=== PATIENT | female | born 1970 | race Caucasian/White ===

== ENCOUNTER 2017-03-11 14:55 | Emergency (ER) | payer OTHER ==
[~2017-03-11] VITALS: Ht 170.2 cm; Wt 79.0 kg
[~2017-03-11 14:55] MED LIST: ALLEGRA-D 241 TABLET PO; ATENOLOL25 M1 PO; ATENOLOL50 MG PO; CIMZIA400 MG/2 M PO; DEXILANT60 MG PO; ENDOCET 5-3251 EACH PO; FOLIC ACID1 MG PO; GABAPENTIN400 MG PO; LEFLUNOMIDE10 MG PO; MOTRIN800 MG PO; NAPROSYN500 MG PO; Naprosyn PO; OMEPRAZOLE20 M2 PO; ORENCIA250 MG/10 IV; OXYCODONE5 MG PO; PROTONIX40 MG PO; ZANTAC150 MG PO; ZYRTEC10 M2 PO
[2017-03-11] MEDS ORDERED: TRAMADOL HCL50 MG PO (15:15)
[2017-03-11] MEDS ORDERED: HUMIRA10 MG/0.2 SC (15:16)
[2017-03-11 15:46] LABS: HEMATOCRIT 35.4 % (36.0-46.0); MCH 28.7 PG (29.0-34.0); MCHC 33.1 G/DL (30.0-36.0); MEAN PLAT.VOLUME 9.4 uM^3 (9.5-12.4); PLATELET COUNT 281 K/uL (156-360); RBC DIS.WIDTH-CV 12.1 % (11.8-14.6); RBC DIS.WIDTH-SD 38.7 % (39-53); RED BLOOD COUNT 4.07 M/uL (3.80-5.20)
[2017-03-11 15:56] LABS: CHLORIDE 104 mEq/L (99-109); POTASSIUM 3.7 mEq/L (3.7-5.4); SODIUM 138 mEq/L (136-147)
[2017-03-11 15:58] LABS: ERTH.SED.RATE 74 MM/HR (0-20); GLUCOSE 87 mg/dL (70-99)
[2017-03-11 15:59] LABS: ANION GAP 11 MEQ/L (2-14)
[2017-03-11 16:02] LABS: GFR ESTIMATE (CALCULATED) > 59 mL/min/; UREA NITROGEN (BUN) 11 mg/dL (9-23)
[2017-03-11 20:06] VITALS: BP 151/94
== END 2017-03-11 20:07 | disposition home or self-care (01) ==
LOC: EME 14:55
PROVIDERS: Emergency Medicine
DX: M06.9 Rheumatoid arthritis, unspecified (principal); I10 Essential (primary) hypertension; Z87.442 Personal history of urinary calculi
CPT/HCPCS: 80048; 85027; 85651; 99281; 99284; J2270; J2930; J7050